=== PATIENT | female | born 1970 | race Caucasian/White ===

== ENCOUNTER 2018-04-22 09:30 | Inpatient (IN) | payer OTHER ==
[~2018-04-22] VITALS: Ht 162.6 cm; Wt 54.5 kg
[2018-05-04] VITALS (23 sets, daily range): BP systolic 94–119; BP diastolic 60–74; PULSE 80–111; RESP 10–26; Ht 162.6 cm; Wt 54.5 kg
--- NOTE | 2018-05-04 05:46 | HPN ---
Date/Time of Note Date/Time of Note DATE: 05/04/18 TIME: 05:46 Interval H&P Admission Note Pt. seen H&P reviewed: No system changes SE CHACKO MD May 04, 2018 05:46
--- NOTE | 2018-05-04 05:50 | OPR ---
Date/Time of Note Date/Time of Note DATE: 05/04/18 TIME: 05:46 Operative Report Procedure Date: May 04, 2018 Preoperative Diagnosis Posttraumatic arthritis left shoulder Postoperative Diagnosis 1. Posttraumatic left glenohumeral joint 2. Posttraumatic arthritis left acromioclavicular joint 3. Left shoulder partial biceps tendon tear Operation/Procedure Performed 1. Left total shoulder arthroplasty 2. Left open distal clavicle excision 3. Left open biceps tenodesis 4. Left shoulder injection of PRP Surgeon see signature line Credit Verifier None Anesthesia Type: general Estimated Blood Loss: 100 - 150 ml's Transfusion none Specimen None Grafts/Implants See body of op note Complications none Pt Condition Post Procedure: stable Disposition: PACU Procedure Description PROCEDURE IN DETAIL: Following the administration of general anesthesia supplemented with a peripheral nerve block for postoperative pain control, the patient was examined under anesthesia. The left antecubital fossa was then prepped and draped in 60 cc of blood were sterilely aspirated. The blood was passed off to the assisted sales representative from the company who prepared the PRP solution. Further examination of the left shoulder revealed very significant stiffness including a forward flexion of about 100 degrees abduction 60 degrees maximal external rotation 60 degrees, with severe crepitus. The patient was then placed in the beach chair position. Sterile prep and drape was then undertaken. An extended deltopectoral incision was then carried through the interval exposing the conjoined tendon and retracting it medially. The superior aspect of the acromioclavicular joint was then exposed. An incision was made in the AC joint capsule and severe arthritic changes were noted. The distal clavicle was then skeletonized for a distance of 10 mm and using the osteotome the distal clavicle was excised. The AC capsule was then closed using interrupted #2 sutures. The subscapularis was incised and mobilized. Severe arthritic changes were noted with very large peripheral osteophytes. Multiple loose bodies were removed from the joint. The biceps tendon was identified and it had moderate fraying within the groove. The intra-articular portion was resected and the biceps was tenodesed to the bicipital groove with solid fixation using multiple #2 sutures. A humeral head osteotomy was then created in the appropriate degree of version and inclination, using the [employer]thro[employer] surface Ovo device. The humerus was retracted and the glenoid was exposed. Peripheral osteophytes were removed and a complete capsulectomy performed. The central canal of the glenoid was then entered and prepared for a size 20 mm Arthrosurface inset glenoid. The actual glenoid was then cemented into position with solid fixation. The humerus was then reamed and prepared for a 42 mm x 48 mm humeral component . The area was irrigated and the PRP solution was then placed in the area where the implant was placed. The actual components were implanted with solid fixation. The subscapularis was reapproximated using #2 sutures that were passed circumferentially around the humerus with a watertight closure of the interval. The arm was taken through full range of motion with no evident instability. The joint was then thoroughly irrigated, the deep tissues were approximated using #1 suture followed by closure of the deep layer using 2-0 Monocryl. The skin was closed using 4-0 Monocryl suture, and a Prenio dressing. An Ultrasling was then applied. The patient was awakened and transported to the recovery room in stable condition. Estimated blood loss for this procedure was 150 cc. Radiographs will be obtained in the recovery room. SE CHACKO MD May 04, 2018 05:50
[2018-05-04] MEDS ORDERED: BUPIVACAINE 0.5% (SDV) 30 ML, morphine SULFATE (PF) 8 MG, EPINEPHrine 0.3 MG, KETOROLAC... IRR SCH ×7 (07:30)
[2018-05-04] MEDS ORDERED: TRANEXAMIC ACID 1GM/100ML(PMX) 100 ML IVPB SCH (07:30)
[2018-05-04] MEDS ORDERED: DEXAMETHASONE 1 MG TAB PO SCH (07:30)
[2018-05-04] MEDS ORDERED: GABAPENTIN 300 MG CAP PO SCH ×2 (07:30→21:00)
[2018-05-04] MEDS ORDERED: CEFAZOLIN 2 GM/50 ML (PMX) 50 ML IVPB SCH (07:30)
--- NOTE | 2018-05-04 09:26 | PREAC ---
Date/Time of Note Date/Time of Note DATE: 05/04/18 TIME: 09:25 Anesthesia Eval and Record Evaluation Time Pre-Procedure Interview DATE: 05/04/18 TIME: 09:25 Age 47 Sex female NPO: 8 hrs Preoperative diagnosis LEFT SHOULDER PRIMARY OA Planned procedure LEFT TOTAL SHOULDER ARTHROPLASTY Past Medical History Past Medical History: Includes Pulm: Smoking Hx Surgery & Anesthesia Issues No known issue (SHIOULDER SX, ECTOPIC) Meds Anticoagulation: No Beta Roney within 24 hr: No Reason Beta Roney not given: Pt. not on B-Roney No Active Prescriptions or Reported Meds Current Medications Cefazolin Sodium/ Dextrose 50 ml @ 100 mls/hr PRE-OP IVPB ; Start 05/04/18 at 07:30; Stop 05/04/18 at 16:00 Tranexamic Acid 100 ml @ 200 mls/hr Pre-op IVPB ; Start 05/04/18 at 07:30; Stop 05/04/18 at 16:00 Bupivacaine HCl/ Morphine Sulfate/ Epinephrine/ Ketorolac Tromethamine/ Clonidine/Sodium Chloride/ Vancomycin HCl INTRA-OP IRR ; Start 05/04/18 at 07:30; Stop 05/04/18 at 16:00 Dexamethasone (Decadron) 2 mg PREOP PO Last administered on 05/04/18at 08:29; Admin Dose 2 MG; Start 05/04/18 at 07:30; Stop 05/04/18 at 16:00 Gabapentin (Neurontin) 300 mg ONCE PO Last administered on 05/04/18at 08:29; Admin Dose 300 MG; Start 05/04/18 at 07:30; Stop 05/04/18 at 16:00 Influenza Virus Vaccine Quadrival (Fluzone) 0.5 ml ONCE ONCE IM* ; Start 05/07/18 at 10:00; Stop 05/07/18 at 10:01 Meds reviewed: Yes Allergies Coded Allergies: tramadol (Verified Allergy, Unknown, PER PATIENT: "SEIZURES", 05/04/18) Allergies Reviewed: Yes Labs/Studies Labs Reviewed: Reviewed by anesthesiologist test: Negative Studies: ECG (NL), CXR Pre-procedure Exam Last vitals Vital Signs Date Temp Pulse Resp B/P (MAP) Pulse Ox O2 O2 Flow FiO2 Time Delivery Rate 05/04/18 98.3 93 16 115/73 98 08:21 (87) Airway: Adequate mouth opening, Adequate thyromental dist Mallampati: Mallampati II Teeth: Normal Lung: Normal Heart: Normal ASA Physical Status ASA physical status: 2 Emergency: None Planned Anesthetic General/MAC: ETT Nerve block: Brachial plexus (left) Planned Pain Management Single shot nerve block, Parenteral pain med Pre-operative Attestations Prior to commencing anesthesia and surgery, the patient was re-evaluated, there was verification of: *The patient's identity *The results of appropriate recent lab work and preoperative vital signs *The above evaluation not changing prior to induction *Anesthetic plan, risk benefits, alternative and complications discussed with patient/family; questions answered; patient/family understands, accepts and wishes to proceed. Austin Bai M.D. May 04, 2018 09:26
[2018-05-04] MEDS ORDERED: FENTAnyl 50 MCG/ML VIAL ONE ×2 (09:29→09:57)
[2018-05-04] MEDS ORDERED: ONDANSETRON 4 MG INJ ONE (09:29)
[2018-05-04] MEDS ORDERED: PROPOFOL 20 ML ONE (09:29)
[2018-05-04] MEDS ORDERED: ROCURONIUM 50 MG INJ ONE (09:29)
[2018-05-04] MEDS ORDERED: CEFAZOLIN 1 GM INJ ONE (09:29)
[2018-05-04] MEDS ORDERED: GLYCOPYRROLATE 0.4 MG INJ ONE ×2 (09:29→11:20)
[2018-05-04] MEDS ORDERED: DEXAMETHASONE 4 MG/ML 5 ML INJ ONE (09:29)
[2018-05-04] MEDS ORDERED: MIDAZOLAM 1 MG/ML 2 ML INJ ONE (09:29)
[2018-05-04] MEDS ORDERED: MIDAZOLAM 1 MG/ML 2 ML INJ IV PRN (09:30)
[2018-05-04] MEDS ORDERED: TRIMETHOBENZAMIDE 100 MG/ML VIAL IM PRN (09:30)
[2018-05-04] MEDS ORDERED: HYDROmorphONE 1 MG/5 ML IV SYRINGE IV PRN ×3 (09:30)
[2018-05-04] MEDS ORDERED: hydrALAzine 20 MG INJ IV PRN (09:30)
[2018-05-04] MEDS ORDERED: CA CHLORIDE 10% 10 ML SYRINGE ONE (09:30)
[2018-05-04] MEDS ORDERED: LABETALOL HCL 20MG INJ IV PRN (09:30)
[2018-05-04] MEDS ORDERED: ALBUTEROL 0.083% (NEB) 2.5 MG/3 ML AMP HHN PRN (09:30)
[2018-05-04] MEDS ORDERED: ONDANSETRON 4 MG INJ IV PRN ×2 (09:30→11:30)
[2018-05-04] MEDS ORDERED: MEPERIDINE 25 MG INJ IV PRN (09:30)
[2018-05-04] MEDS ORDERED: FENTAnyl 50 MCG/ML VIAL IV PRN ×3 (09:30)
[2018-05-04] MEDS ORDERED: IPRATROPIUM (NEB) 0.5 MG/2.5 ML AMP HHN PRN (09:30)
[2018-05-04] MEDS ORDERED: THROMBIN (BOVINE) 5,000 UNIT VIAL TP ONE (09:30)
[2018-05-04] MEDS ORDERED: DIPHENHYDRAMINE 50 MG INJ IV PRN ×2 (09:30→11:30)
[2018-05-04] MEDS ORDERED: EPHEDrine SULFATE 50 MG/5 ML SYG IV PRN (09:30)
[2018-05-04] MEDS ORDERED: ROPIVACAINE 0.5 % 30 ML VIAL ONE (09:31)
[2018-05-04] MEDS ORDERED: NEOSTIGMINE 10 MG INJ ONE (11:20)
[2018-05-04] MEDS ORDERED: MAGNESIUM HYDROXIDE 30ML CUP PO PRN (11:30)
[2018-05-04] MEDS ORDERED: ZOLPIDEM 5 MG TAB PO PRN (11:30)
[2018-05-04] MEDS ORDERED: LOPERAMIDE 2 MG CAP PO PRN (11:30)
[2018-05-04] MEDS ORDERED: KETOROLAC 15 MG INJ IV PRN (11:30)
[2018-05-04] MEDS ORDERED: TRANEXAMIC ACID 1GM/100ML(PMX) 100 ML IVPB ONE (11:30)
[2018-05-04] MEDS ORDERED: NACL 0.9% 3 ML SYG IV SCH (11:30)
[2018-05-04] MEDS ORDERED: METOCLOPRAMIDE 10 MG INJ ONE (11:33)
--- NOTE | 2018-05-04 11:33 | PDOCDIS ---
Discharge Instructions DIAGNOSIS Discharge Diagnosis Glenohumeral arthritis CONDITION [id number] Patient Condition: [id number] Good HOME CARE INSTRUCTIONS: [id number] Diet Instructions: [id number] Regular ACTIVITY: [id number] Activity Restrictions: [id number] Slowly Increase Activity Keep Limb Elevated [id number] Bathing Restrictions: Fliey9s Shower FOLLOW UP/APPOINTMENTS Follow-up Plan 2 weeks in the office SCHOOL/WORK RELEASE May return to School/Work with: With Restrictions School/Work Release Comment: 5 pound tabletop usage for 4 weeks SE CHACKO MD May 04, 2018 11:33
--- NOTE | 2018-05-04 11:56 | PAC ---
Date/Time of Note Date/Time of Note DATE: 05/04/18 TIME: 11:56 Post-Anesthesia Notes Post-Anesthesia Note Last documented vital signs Vital Signs Date Temp Pulse Resp B/P (MAP) Pulse Ox O2 O2 Flow FiO2 Time Delivery Rate 05/04/18 98.0 11:49 05/04/18 91 13 99/60 (73) 99 Nasal 2.0 11:44 Cannula Activity: WNL Respiratory function: WNL Cardiovascular function: WNL Mental status: Baseline Pain reasonably controlled: Yes Hydration appropriate: Yes Nausea/Vomiting absent: Yes Austin Bai M.D. May 04, 2018 11:56
[2018-05-04] MEDS: CEFAZOLIN 1 GM/50 ML (PMX) 50 ML IVPB SCH ×2 (12:05→20:33)
[2018-05-04] MEDS: ACETAMINOPHEN 500 MG TAB PO SCH ×3 (12:14→23:33)
[2018-05-04] MEDS: DEXAMETHASONE 2 MG TAB PO SCH ×3 (12:14→23:33)
[2018-05-04] MEDS: SENNA/DOCUSATE NA (8.6MG/50MG) TAB PO SCH (20:33)
[2018-05-04] MEDS: HYDROmorphONE 1 MG/ML SYG IV PRN (23:37)
[2018-05-05 02:39] VITALS: BP 107/65; PULSE 102; RESP 18
[2018-05-05] MEDS: oxyCODONE 5 MG TAB PO PRN ×2 (02:58→09:31)
[2018-05-05] MEDS: CEFAZOLIN 1 GM/50 ML (PMX) 50 ML IVPB SCH (04:16)
[2018-05-05] MEDS: HYDROmorphONE 1 MG/ML SYG IV PRN (04:23)
[2018-05-05] MEDS: ACETAMINOPHEN 500 MG TAB PO SCH (05:33)
[2018-05-05] MEDS: DEXAMETHASONE 2 MG TAB PO SCH (05:33)
--- NOTE | 2018-05-05 05:40 | PN ---
Date/Time of Note Date/Time of Note DATE: 05/05/18 TIME: 05:40 Subjective Awake and alert this morning. Denies pain. Objective Vitals Vital Signs Date Temp Pulse Resp B/P (MAP) Pulse Ox O2 O2 Flow FiO2 Time Delivery Rate 05/05/18 98.0 102 18 107/65 96 02:39 (79) 05/04/18 Room Air 13:42 05/04/18 2.0 12:12 Intake and Output 05/04/18 05/04/18 05/05/18 1515:00 23:00 07:00 IntakeIntake Total 2250 ml 350 ml OutputOutput Total 500 ml 600 ml BalanceBalance 1750 ml -250 ml Wound is clean and dry. Neurologically intact. No signs of DVT. Medications Medications Current Medications Influenza Virus Vaccine Quadrival (Fluzone) 0.5 ml ONCE ONCE IM* ; Start 9 at 10:00; Stop 05/07/18 at 10:01 Senna/Docusate Sodium (Senokot-S) 1 tab BID PO Last administered on 05/04/18at 20:33; Admin Dose 1 TAB; Start 05/04/18 at 21:00 Simethicone (Mylicon) 80 mg TID PRN PO .GAS; Start 05/04/18 at 11:30 Magnesium Hydroxide (Milk Of Mag) 30 ml BID PRN PO .CONSTIPATION; Start 05/04/18 at 11:30 Loperamide HCl (Imodium Cap) 2 mg Q6H PRN PO .DIARRHEA; Start 05/04/18 at 11:30 Dexamethasone (Decadron) 2 mg Q6 PO Last administered on 05/05/18at 05:33; Admin Dose 2 MG; Start 05/04/18 at 12:00; Stop 05/05/18 at 06:01 Gabapentin (Neurontin) 300 mg HS PO Last administered on 05/04/18 20:33; Admin Dose 300 MG; Start 05/04/18 at 21:00 Acetaminophen (Tylenol Tab) 500 mg Q6 PO Last administered on 05/05/18 05:33; Admin Dose 500 MG; Start 05/04/18 at 12:00 Oxycodone HCl (Roxicodone) 5 mg Q4H PRN PO .PAIN Last administered on 05/05/18at 02:58; Admin Dose 5 MG; Start 05/04/18 at 11:30 Hydromorphone HCl (Dilaudid) 1 mg Q4H PRN IV .BREAKTHROUGH PAIN Last administered on 05/05/18at 04:23; Admin Dose 1 MG; Start 05/04/18 at 11:30 Ketorolac Tromethamine (Toradol) 15 mg Q6H PRN IV .PAIN; Start 05/04/18 at 11:30 Ondansetron HCl (Zofran Inj) 4 mg Q6H PRN IV NAUSEA/VOMITING; Start 05/04/18 at 11:30 Diphenhydramine HCl (Benadryl) 25 mg Q6H PRN IV .PRURITUS; Start 05/04/18 at 11:30 Zolpidem Tartrate (Ambien) 10 mg HS PRN PO .INSOMNIA; Start 05/04/18 at 11:30 IV Flush (NS 3 ml) 3 ml per protocol IV Last administered on 05/04/18at 20:41; Admin Dose 3 ML; Start 05/04/18 at 11:30 VTE Prophylaxis Risk score (from Nsg)>0 risk: 8 SCD applied (from Nsg): Yes Lines/Catheters IV Catheter Type: Saline Lock Castillo in Place: No Assessment/Plan Assessment/Plan Assessment: Status post total shoulder replacement Plan: Begin OT this morning and discharge following that SE CHACKO MD May 05, 2018 05:40
--- NOTE | 2018-05-05 05:41 | DS ---
Date/Time of Note Date/Time of Note DATE: 05/05/18 TIME: 05:40 Discharge Summary Admission/Discharge Info Admit Date/Time May 04, 2018 at 07:22 Discharge Date/Time 05/05/2018 Discharge Diagnosis Glenohumeral arthritis Patient Condition: Good Hospital Course Admitted and underwent uncomplicated procedure. Postop day 1 discharge home after PT Home Meds No Active Prescriptions or Reported Meds Follow-up Plan 2 weeks in the office Primary Care Provider Not On Staff Doctor SE CHACKO MD May 05, 2018 05:41
[2018-05-05 08:00] VITALS: BP 120/74; PULSE 110; RESP 18
[2018-05-05] MEDS: SENNA/DOCUSATE NA (8.6MG/50MG) TAB PO SCH (09:31)
[2018-05-07] MEDS ORDERED: INFLUENZA VIRUS VACCINE 0.5 ML (DISPENSING) IM* ONE (10:00)
== END 2018-05-05 11:45 | disposition home or self-care (01) | DRG 483 ==
LOC: REC 05-04 07:22 → MS1 05-04 13:35
PROVIDERS: ADMIT Orthopaedic Surgery; ATTEND Orthopaedic Surgery
PROC: 0PBB0ZZ Excision of Left Clavicle, Open Approach (ICD-10-PCS; 2018-05-04)
PROC: 0LS40ZZ Reposition Left Upper Arm Tendon, Open Approach (ICD-10-PCS; 2018-05-04)
PROC: 0RRK0JZ Replacement of Left Shoulder Joint with Synthetic Substitute, Open Approach (ICD-10-PCS; principal; 2018-05-04 09:30)
DX: M19.112 Post-traumatic osteoarthritis, left shoulder (principal); S46.212A Strain of muscle, fascia and tendon of other parts of biceps, left arm, initial encounter; X58.XXXA Exposure to other specified factors, initial encounter
CPT/HCPCS: 73030; 84703; 86999; 88304; 88311; 97161; J0690; J1100; J1170; J1885; J2250; J2405; J2710; J2765; J2795; J3010